=== PATIENT | male | born 1965 | race Caucasian/White ===

== ENCOUNTER 2016-10-21 17:28 | Emergency (ER) | payer BC ==
[~2016-10-21] VITALS: Ht 177.8 cm; Wt 72.6 kg
[2016-10-21 17:33] VITALS: BP 135/81
[2016-10-21] MEDS ORDERED: Morphine Sulfate 4mg/ml Inj IVP ONE (17:45)
[2016-10-21 18:30] VITALS: BP 132/76
[2016-10-21 18:37] VITALS: BP 135/81
--- NOTE | 2016-10-21 22:52 | Emergency Room Report ---
History of Present Illness General Chief Complaint: General Complaint Source: Patient, EMS Present Illness HPI Patient is a 51-year-old male brought in by EMS after having increased hematuria. Patient had previous history of a recent low back surgery. Patient had subsequent the Robles catheter placed. Patient was noted to have initial a urine output with the subsequent gross hematuria. The patient for having some pain to his low back surgery site. He was noted to have continued bleeding after Robles was irrigated. Allergies: Coded Allergies: No Known Allergies (Unverified , 10/21/16) Patient History Past Medical History: see triage record Reviewed Nursing Documentation: PMH: Agreed, PSxH: Agreed Nursing Documentation-PMH Past Medical History: No History, Except For Hx Asthma: No - microdiscectomy Hx Cancer: Yes - SKIN Review of Systems All Other Systems: negative except mentioned in HPI Physical Exam Vital Signs Date Time Temp Pulse Resp B/P Pulse Ox O2 Delivery O2 Flow Rate FiO2 10/21/16 17:18 98.4 74 20 135/81 97 Room Air General Appearance: well appearing, no apparent distress, alert, GCS 15 Head: normocephalic, atraumatic ENT: hearing grossly normal, normal voice Neck: full range of motion, supple Respiratory: no respiratory distress, speaking full sentences Cardiovascular #1: normal peripheral pulses, regular rate, rhythm Gastrointestinal: normal inspection, normal bowel sounds, tenderness - suprapubic, distention Genitourinary: penis normal, scrotum normal, other - blood at meatus Musculoskeletal: no calf tenderness, decreased range of mation Neurologic: normal inspection, alert, oriented x3, normal gait Psychiatric: mood/affect normal Skin: no rash Medical Decision Making Diagnostic Impression: Primary Impression: Dislodged Robles catheter ER Course Patient presented for gross hematuria. Differential diagnosis included was not limited to the Robles catheter migration, urethral transection, coagulopathy, anemia among others. Patient's benign exam and does not appear to require any further imaging or laboratory testing at this time.The patient was given morphine for pain. The bedside ultrasound was performed which showed suprapubic bladder distention. The Robles balloon could not be visualized. Robles catheter was removed. The a coud catheter was subsequently placed by me using sterile technique. The patient had good urine output subsequently. This did not appear to be bloody. Patient was noted to have small amount of bleeding after procedure which was markedly improved compared to arrival. The patient was advised to followup with urology for further evaluation. Last Vital Signs Date Time Temp Pulse Resp B/P Pulse Ox O2 Delivery O2 Flow Rate FiO2 10/21/16 18:37 98.4 79 20 135/81 97 Room Air Status: improved Disposition: HOME, SELF-CARE Condition: Stable Referrals: Sancho Strong M.D. NOT CHOSEN IPA/,REFERRING (PCP) Patient Instructions: Robles Catheter Care, Adult Additional Instructions: recheck with Urology in one week. Jaun Vieira Oct 21, 2016 22:52
== END 2016-10-21 18:37 | disposition home or self-care (01) ==
LOC: EDBD 17:28 → EMR 17:48
DX: T83.098A Other mechanical complication of other urinary catheter, initial encounter (principal); Z85.828 Personal history of other malignant neoplasm of skin; Y84.6 Urinary catheterization as the cause of abnormal reaction of the patient, or of later complication, without mention of misadventure at the time of the procedure; Y92.9 Unspecified place or not applicable; Y99.8 Other external cause status
CPT/HCPCS: 51701; 96374; 96375; 99284; J2270; J2405